=== PATIENT | male | born 1965 | race Caucasian/White ===

== ENCOUNTER 2018-07-11 15:15 | Day surgery (SDC) | payer OTHER ==
[2018-07-11] MEDS ORDERED: LIDOCAINE 2% (SDV) 5 ML INJ (16:55)
[2018-07-11] MEDS ORDERED: PROPOFOL 20 ML (16:55)
[2018-07-11] MEDS ORDERED: CEFAZOLIN 1 GM INJ (16:55)
[2018-07-11] MEDS ORDERED: FENTAnyl 50 MCG/ML VIAL (16:57)
[2018-07-11] MEDS: POLYMYXIN/BACITRACIN 1L IRRIG (17:33)
[2018-07-11] MEDS ORDERED: ONDANSETRON 4 MG INJ (18:34)
[2018-07-11] MEDS ORDERED: ROPIVACAINE 0.5 % 30 ML VIAL (18:41)
[2018-07-11] MEDS ORDERED: EPHEDrine SULFATE 50 MG/5 ML SYG (18:58)
[2018-07-11] MEDS ORDERED: MIDAZOLAM 1 MG/ML 2 ML INJ IV (19:30)
[2018-07-11] MEDS ORDERED: METOCLOPRAMIDE 10 MG INJ IV (19:30)
[2018-07-11] MEDS ORDERED: DIPHENHYDRAMINE 50 MG INJ IV (19:30)
[2018-07-11] MEDS ORDERED: EPHEDrine SULFATE 50 MG/5 ML SYG IV (19:30)
[2018-07-11] MEDS ORDERED: MEPERIDINE 25 MG INJ IV (19:30)
[2018-07-11] MEDS ORDERED: hydrALAzine 20 MG INJ IV (19:30)
[2018-07-11] MEDS ORDERED: LABETALOL HCL 20MG INJ IV (19:30)
[2018-07-11] MEDS ORDERED: HYDROmorphONE 1 MG/5 ML IV SYRINGE IV ×3 (19:30)
[2018-07-11] MEDS ORDERED: FENTAnyl 50 MCG/ML VIAL IV ×3 (19:30)
[2018-07-11] MEDS ORDERED: ONDANSETRON 4 MG INJ IV (19:30)
[2018-07-11] MEDS ORDERED: OXYCODONE/ACETAMINOPHEN (5/325) TAB PO ×2 (19:30)
== END 2018-07-11 20:33 | disposition home or self-care (01) ==
LOC: SDS 15:15
DX: S46.211D Strain of muscle, fascia and tendon of other parts of biceps, right arm, subsequent encounter (principal); X58.XXXD Exposure to other specified factors, subsequent encounter; I25.10 Atherosclerotic heart disease of native coronary artery without angina pectoris; E78.5 Hyperlipidemia, unspecified; I10 Essential (primary) hypertension
CPT/HCPCS: 24341